=== PATIENT | female | born 1940 | race Caucasian/White ===

== ENCOUNTER → 2021-04-19 15:41 | Outpatient (CLI) | payer MEDICARE, OTHER, SELFPAY ==
[2021-04-19 16:16] LABS: CREATININE FINGERSTICK 1.1 mg/dL (0.55-1.02)
--- NOTE | 2021-04-19 16:45 | MRI_ITS ---
STUDY: MRI BRAIN WITH AND WITHOUT CONTRAST REASON FOR EXAM: Female, 80 years old. 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 IV 11ml Dotarem was administered for the contrast portion of the examination. COMPARISON: None. FINDINGS: There is moderate cerebral atrophy with widening of the extra-axial spaces and ventricular dilatation. Normal white matter tracts of the supratentorial brain. There is no evidence for recent intracranial ischemia or other cause of cytotoxic edema on diffusion weighted imaging (DWI). Normal bilateral basal ganglia. Normal thalami. There is no extra-axial fluid accumulation. Normal flow voids within the major intracranial circulation suggesting patency by spin echo criteria. Normal venous enhancement. There is no enhancing intra-axial or extra-axial abnormality. Normal sella turcica, pituitary gland, infundibular stalk, optic chiasm and hypothalamus. Normal tectal plate and pineal gland. Normal midbrain, mason and medulla. Normal cerebellum. Normal basal cisterns. Normal bilateral temporal bones. 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 There are bilateral ocular lens implants with otherwise normal intraorbital contents. Normal visualized paranasal sinuses. Normal calvarium and skull base. Normal visualized soft tissue structures. Normal visualized upper cervical spine. MRI/Brain W/WO Contrast IMPRESSION: Postsurgical changes to the right internal carotid canal without evidence of residual recurrent vestibular schwannoma (acoustic neuroma). Electronically Signed: Gustabo Billings MD at 12:43 EDT Tel , Service support ,
== END ==
PROVIDERS: PCP Internal Medicine; Referring Provider Otolaryngology; Visit Provider Otolaryngology
DX: R27.0 Ataxia, unspecified (principal)
CPT/HCPCS: 70553; A9575

== ENCOUNTER 2025-04-18 14:28 | Outpatient (CLI) | payer MEDICARE, OTHER, SELFPAY ==
[2025-04-18 17:59] LABS: Hematocrit 32.8 % (37-47); Hemoglobin 10.7 g/dL (12.0-15.0); Immature Granulocytes Count 0.020 X10^3/uL (0.0-0.0); Mean Corp Hgb Conc 32.6 g/dL (32-36); Mean Corpuscular Volume 97.6 fL (81-99); Mean Platelet Vol. 10.7 fl (6.2-12.0); NRBC Flagged by Analyzer 0 % (0-5); Platelet Count 256 K/mm3 (150-450); RBC Distribution Width CV 14.6 % (11.6-14.6); RBC Distribution Width SD 52.8 fl (35.1-43.9); Red Blood Count 3.36 M/mm3 (4.2-5.4); White Blood Count 7.4 K/mm3 (4.4-11.0)
[2025-04-18 19:16] LABS: AST(SGOT) 31 U/L (<=31); Alanine Aminotransfer ALT/SGPT 18 U/L (<=34); Albumin, Serum 4.7 g/dL (3.4-4.8); Alkaline Phosphatase 77 U/L (35-104); Anion Gap 16 (5-15); BUN 24 mg/dL (4-19); BUN/Creat Ratio 20.8 RATIO (10-20); CPK Total, Creatine Kinase 98 U/L (24-195); Calcium,Total 9.9 mg/dL (7.6-11.0); Carbon Dioxide 24.8 mmol/L (21.0-32.0); Chloride 100 mmol/L (98-108); Globulin 3.0 g/dL (2.2-4.2); Glucose 101 mg/dL (70-99); Hepatitis B Surface Antigen Nonreactive (Nonreactive); Hepatitis C Antibody Nonreactive (Nonreactive); Potassium 3.9 mmol/L (3.3-5.1)
[2025-04-20 15:08] LABS: Anti-dsDNA Ab <1 IU/mL (0-9)
== END 2025-04-18 23:59 | disposition home or self-care (01) ==
LOC: MTLAB 14:29
PROVIDERS: PCP Internal Medicine; Referring Provider Dermatology; Visit Provider Dermatology
DX: L30.9 Dermatitis, unspecified (principal)
CPT/HCPCS: 36415; 80053; 82085; 82550; 85025; 86038; 86225; 86704; 86706; 86803; 87340